=== PATIENT | female | born 1995 | race Two or more races ===

== ENCOUNTER 2022-02-07 11:53 | Inpatient (IN) ==
[2022-02-07] MEDS ORDERED: ERTAPENEM SODIUM 10 ML IV STA (12:07)
[2022-02-07] MEDS ORDERED: SODIUM CHLORIDE 0.9% 1000ML 1,000 ML IV ONE (12:07)
[2022-02-07] MEDS ORDERED: ONDANSETRON INJ 2 MG/ML 2 ML VIAL IV STA (12:07)
--- NOTE | 2022-02-07 12:32 | Emergency Department Note ---
Impression & Plan Pyelonephritis ED Provider Note NAME: AUBREE MURRY AGE: 26 SEX: F : 1995 ARRIVES VIA: Walk-In INFORMANT: Patient, ED PROVIDER(S): Harjit Mix DO CHIEF COMPLAINT: UTI symptoms HPI: The patient is a 26-year-old female who presented to the emergency department for an evaluation of UTI symptoms. The patient was seen in our facility recently for a work-up for appendicitis. Her CT did not show any acute signs of appendicitis. Her urine was sent for culture and the patient was treated with IV fluids and IV antibiotics in the emergency department. She was also started on outpatient cefdinir. She was noted to have an organism resistant to the antibiotic she was started on. She was called and asked to return to the emergency department for further evaluation. The patient states she still has chills and some lower abdominal tenderness. She denies having any vomiting. She does complain of nausea. She states that she has had fevers at home. She has had generalized malaise. Her blood sugars have been well controlled according to her. She has had no recent trauma. The patient denies have any vaginal bleeding or discharge. ROS: See above HPI for pertinent positives & negatives. A total of 10 systems reviewed and were otherwise negative. PAST MEDICAL HISTORY: See Below PAST SURGICAL HISTORY: See Below FAMILY HISTORY: See Below SOCIAL HISTORY: See Below HOME MEDICATIONS: See Below ALLERGIES: See Below VITALS: See Below PHYSICAL EXAMINATION: GENERAL: The patient is awake and alert. She is mildly anxious. But overall comfortable. EYES: The conjunctivae are clear. The pupils are round and reactive. EARS, NOSE, MOUTH AND THROAT: The nose is without any evidence of any deformity. Mucous membranes are moist. Tongue is midline. NECK: The neck is nontender and supple. RESPIRATORY: Normal respiratory effort is noted there is no evidence of wheezing rhonchi or rales CARDIOVASCULAR: Tachycardic rate with regular rhythm was noted. There is no definite murmur. GASTROINTESTINAL: The abdomen was soft and nondistended. There is no specific guarding or rigidity. There was some tenderness in the suprapubic region. BACK: No midline tenderness or or step-off noted range of motion in flexion extension as well as rotation no signs of muscle spasm noted MUSCULOSKELETAL/EXTREMITIES: There is no evidence of gross deformity full range of motion is noted in the hips and shoulders. SKIN: There is no obvious evidence of any rash. There are no petechiae, pallor or cyanosis noted. NEUROLOGIC: Patient is awake alert and oriented x3 MEDICAL DECISION MAKING: The patient is a 26-year-old female who presented to the emergency department for an evaluation of abnormal urine culture. The patient was seen in our [facility] recently for similar complaints. At that time she was diagnosed with a urinary tract infection. She was sent home on an antibiotic. She was called to return today because of an ESBL organism in her urine. The patient has a history of diabetes. I review of her CT by the radiologist today does show that there was some signs of pyelonephritis on the previous CT. I discussed patient's laboratory and radiographic studies with her. She was treated with IV fluids as well as IV antibiotics in emergency department. I also discussed her case with the on-call [facility]. They have agreed to evaluate the patient in the emergency department for further management and disposition. Triage Nursing notes reviewed. Prior medical records reviewed Vital Signs: reviewed and remarkable for tachycardia Differential diagnosis: Ovarian torsion, endometriosis, ectopic , pelvic pain, UTI, cystitis, appendicitis, diverticulitis, mesenteric ischemia, PID, inflammatory bowel disease, renal colic, Bartholin's abscess, cervicitis, as well as other pathologies. ER treatment provided: See below Diagnostics interpreted by me: ECG: EKG was obtained in the emergency department. My interpretation is sinus tachycardia 104 bpm. There is no ectopy. There is no acute ST segment abnormalities noted Cardiac Monitoring: An order was placed for continuous cardiac monitoring. The monitor shows a rate of 106 bpm with sinus rhythm. Laboratory studies: As stated above and show below. Imaging studies: See below Consultation(s): I discussed this case with Dr. Louis who is on-call for the [facility] group. He is agreed to evaluate the patient in the emergency department for further management and disposition. Past Med/Surg History Medical History Diabetes Social History Smoking Status: Never smoker Feels Safe at Home: Yes Allergies Allergies Allergy/AdvReac Type Severity Reaction Status Date / Time No Known Allergies Allergy Unverified 02/04/22 17:28 Home Meds Home Medications Medication Instructions Recorded Confirmed acetaminophen 500 mg tablet 500 mg PO DIRECTED PRN MDD i 02/04/22 02/04/22 metformin 500 mg tablet,extended 500 mg PO BID 02/04/22 02/04/22 release 24 hr semaglutide 1 mg/dose (4 mg/3 mL) 1 mg SUBCUT WE 02/04/22 02/04/22 subcutaneous pen injector (Ozempic) Previous Rx's Medication Instructions Recorded cefdinir 300 mg capsule 300 mg PO BID 7 Days #14 cap 02/04/22 Results & Data (ED) Vital Signs Vital Signs - 24 hr 02/07/22 12:02 02/07/22 12:48 02/07/22 13:05 Pulse Rate 124 H 107 H Pulse Rate [Apical] 106 H Pulse Rhythm Regular Pulse Rhythm [Apical] Regular Respiratory Rate 16 13 Respiratory Effort / Characteristics Non-Labored Non-Labored Non-Labored Respiratory Depth Normal Respiratory Pattern Regular Blood Pressure 112/77 Blood Pressure [Left Arm] 113/83 Blood Pressure Mean 88 Blood Pressure Mean [Left Arm] 93 Blood Pressure Position Sitting Pulse Oximetry 98 100 100 Oxygen Delivery Method Room Air Room Air Room Air Sepsis Recent Fever Within 48 Hours No Sepsis New/Unexplained Change in Mental Status No Sepsis Action Taken by Nursing No Action Required Home Medications Current Medication List: was personally reviewed by me Laboratory Data Attestation: I reviewed the patient's lab results. Result diagrams: 02/07/22 12:30 02/07/22 12:30 Lab Results 02/07/22 02/07/22 02/07/22 Range/Units 12:25 12:30 12:30 WBC 7.70 (4.8-10.8) K/uL RBC 4.36 (4.2-5.4) M/uL Hgb 12.7 (12.0-16.0) g/dL Hct 37.2 (37-47) % MCV 85.3 (80-100) fL MCH 29.1 (25-34) pg MCHC 34.1 (32-36) g/dL RDW Std Deviation 39.5 (36.4-46.3) fL RDW Coeff of Lindy 12.7 (11.5-14.5) % Plt Count 254 (130-400) K/uL MPV 10.3 (7.4-10.4) fL Immature Gran % (Auto) 1.0 % Neut % (Auto) 65.4 % Lymph % (Auto) 20.3 % [place] % (Auto) 13.0 % Eos % (Auto) 0.3 % Baso % (Auto) 0.0 % Neut # (Auto) 5.04 (1.4-6.5) K/uL Lymph # (Auto) 1.56 (1.2-3.4) K/uL [place] # (Auto) 1.00 H (0.11-0.59) K/uL Eos # (Auto) 0.02 (0-0.5) K/uL Baso # (Auto) 0.00 (0-0.2) K/uL Immature Gran # (Auto) 0.08 H (0.00-0.02) K/uL PT 10.9 (9.0-12.0) Seconds INR 1.0 (0.9-1.1) APTT 32.5 H (21.0-31.0) Seconds PTT Ratio 1.2 Sodium (136-145) mmol/L Potassium (3.5-5.1) mmol/L Chloride (98-107) mmol/L Carbon Dioxide (21-32) mmol/L Anion Gap (3-11) BUN (6-23) mg/dl Creatinine (0.6-1.2) mg/dl Est Cr Clr Drug Dosing ml/min Est GFR ( Amer) ml/min Est GFR (Non-Af Amer) ml/min BUN/Creatinine Ratio (10-20) Glucose (70-99(Fasting)) mg/dl Lactate 1.8 (0.4-2.0) mmol/L Calcium (8.5-10.1) mg/dl Magnesium (1.7-2.4) mg/dl Total Bilirubin (0.2-1.0) mg/dl AST (13-39) U/L ALT (7-52) U/L Alkaline Phosphatase (34-104) U/L Total Protein (6.0-8.3) gm/dl Albumin (3.4-5.0) gm/dl Globulin (2.5-4.0) gm/dl Albumin/Globulin Ratio (0.9-2) HCG, Qual (Negative) SARS-CoV-2, RNA, NAAT (NEGATIVE) 02/07/22 02/07/22 02/07/22 Range/Units 12:30 12:30 12:30 WBC (4.8-10.8) K/uL RBC (4.2-5.4) M/uL Hgb (12.0-16.0) g/dL Hct (37-47) % MCV (80-100) fL MCH (25-34) pg MCHC (32-36) g/dL RDW Std Deviation (36.4-46.3) fL RDW Coeff of Lindy (11.5-14.5) % Plt Count (130-400) K/uL MPV (7.4-10.4) fL Immature Gran % (Auto) % Neut % (Auto) % Lymph % (Auto) % [place] % (Auto) % Eos % (Auto) % Baso % (Auto) % Neut # (Auto) (1.4-6.5) K/uL Lymph # (Auto) (1.2-3.4) K/uL [place] # (Auto) (0.11-0.59) K/uL Eos # (Auto) (0-0.5) K/uL Baso # (Auto) (0-0.2) K/uL Immature Gran # (Auto) (0.00-0.02) K/uL PT (9.0-12.0) Seconds INR (0.9-1.1) APTT (21.0-31.0) Seconds PTT Ratio Sodium 134 L (136-145) mmol/L Potassium 4.0 (3.5-5.1) mmol/L Chloride 101 (98-107) mmol/L Carbon Dioxide 21 (21-32) mmol/L Anion Gap 12 H (3-11) BUN 11 (6-23) mg/dl Creatinine 0.78 (0.6-1.2) mg/dl Est Cr Clr Drug Dosing 96.0 ml/min Est GFR ( Amer) 123.3 ml/min Est GFR (Non-Af Amer) 106.4 ml/min BUN/Creatinine Ratio 14.1 (10-20) Glucose 290 H (70-99(Fasting)) mg/dl Lactate (0.4-2.0) mmol/L Calcium 9.0 (8.5-10.1) mg/dl Magnesium 1.8 (1.7-2.4) mg/dl Total Bilirubin 0.6 (0.2-1.0) mg/dl AST 7 L (13-39) U/L ALT 8 (7-52) U/L Alkaline Phosphatase 90 (34-104) U/L Total Protein 7.2 (6.0-8.3) gm/dl Albumin 3.8 (3.4-5.0) gm/dl Globulin 3.4 (2.5-4.0) gm/dl Albumin/Globulin Ratio 1.1 (0.9-2) HCG, Qual Negative (Negative) SARS-CoV-2, RNA, NAAT NEGATIVE (NEGATIVE) Administered Medications Discontinued Medications Sodium Chloride (Nss 1000ml) 1,000 mls @ 999 mls/hr IV .Q1H1M ONE Stop: 02/07/22 13:07 Last Admin: 02/07/22 12:33 Dose: 999 mls/hr Documented by: [id number] Ertapenem (Invanz) 10 mls @ 2 mls/min IV NOW STA Stop: 02/07/22 12:11 Last Admin: 02/07/22 13:00 Dose: 2 mls/min Documented by: [id number] Ondansetron HCl (Ondansetron Inj 2 Mg/Ml 2 Ml Vial) 4 mg IV NOW STA Stop: 02/07/22 12:08 Last Admin: 02/07/22 12:33 Dose: 4 mg Documented by: [id number] Imaging Data Radiologist's Impression: Chest X-Ray 02/07/22 12:07 SINGLE VIEW CHEST CLINICAL HISTORY: Sepsis. FINDINGS: An AP, portable, upright chest radiograph is obtained. No prior studies are available for comparison at the time of dictation. The card iomediastinal silhouette is unremarkable. The lungs and pleural spaces are clear. No pneumothorax is seen. The bony thorax is grossly intact. IMPRESSION: No active disease in the chest. ACT 112: Negative or not required by law. Electronically signed by: Jose Shin M.D. 02/07/2022 1:00 PM Discharge Plan Visit Data Chief Complaint: Fever Stated Complaint: FEVER AND CHILLS ED Provider: Harjit Mix Discharge Problem: Pyelonephritis Patient Disposition: Being Evaluated by Hospitalist Forms Stand Alone Forms: My [facility] Prescriptions Prescriptions: No Action acetaminophen [Paracetamol] 500 mg Tablet 500 mg PO DIRECTED MDD i PRN (Reason: Pain) RF: 0 metformin 500 mg tablet extended release 24 hr 500 mg PO BID RF: 0 Ozempic 1 mg/dose (4 mg/3 mL) pen injector 1 mg SUBCUT WE RF: 0 cefdinir 300 mg capsule 300 mg PO BID 7 Days Qty: 14 RF: 0 Referrals Referrals: [facility] [Primary Care Provider] -
[2022-02-07 12:50] LABS: Eosinophils # (auto) 0.02 K/uL (0-0.5); Eosinophils % (auto) 0.3 %; Hematocrit (blood only) 37.2 % (37-47); Hemoglobin 12.7 g/dL (12.0-16.0); Immature Granulocytes # (auto) 0.08 K/uL (0.00-0.02); Lymphocytes # (auto) 1.56 K/uL (1.2-3.4); Lymphocytes % (auto) 20.3 %; Mean Corpuscular Hemoglobin 29.1 pg (25-34); Mean Corpuscular Hgb Conc 34.1 g/dL (32-36); Mean Corpuscular Volume 85.3 fL (80-100); Mean Platelet Volume 10.3 fL (7.4-10.4); Neutrophils # (auto) 5.04 K/uL (1.4-6.5); Neutrophils % (auto) 65.4 %; Platelet Count 254 K/uL (130-400); RDW Coefficient of Variation 12.7 % (11.5-14.5); RDW Standard Deviation 39.5 fL (36.4-46.3); Red Blood Count 4.36 M/uL (4.2-5.4)
[2022-02-07 13:03] LABS: Partial Thromboplastin Ratio 1.2; Partial Thromboplastin Time 32.5 Seconds (21.0-31.0); Prothrombin Time 10.9 Seconds (9.0-12.0)
--- NOTE | 2022-02-07 13:03 | XRay Report ---
SINGLE VIEW CHEST CLINICAL HISTORY: Sepsis. FINDINGS: An AP, portable, upright chest radiograph is obtained. No prior studies are available for c omparison at the time of dictation. The cardiomediastinal silhouette is unremarkable. The lungs and pleural spaces are clear. No pneumothorax is seen. The bony thorax is grossly intact. IMPRESSION: No active disease in the chest. ACT 112: Negative or not required by law. Electronically signed by: Jose Shni M.D. 02/07/2022 1:00 PM
[2022-02-07 13:13] LABS: Pregnancy Test, Serum Negative (Negative)
[2022-02-07 13:14] LABS: Albumin Globulin Ratio 1.1 (0.9-2); Albumin Level 3.8 gm/dl (3.4-5.0); BUN Creatinine Ratio 14.1 (10-20); Bilirubin,Total 0.6 mg/dl (0.2-1.0); Est GFR (African American) 123.3 ml/min; Est GFR (Non-African American) 106.4 ml/min; Globulin 3.4 gm/dl (2.5-4.0); Magnesium 1.8 mg/dl (1.7-2.4); Total Protein 7.2 gm/dl (6.0-8.3)
--- NOTE | 2022-02-07 14:21 | History & Physical Report ---
Date of Service February 07, 2022 Assessment & Plan (1) Pyelonephritis: Plan: Presumed diagnosis, though not conclusive to me. Her UA from 02/04 was a contaminated specimen. She has some RLQ pain, but no CVA tenderness, and no lower urinary symptoms at all. Per ER doc, the re-read of her CT a/p from 02/04 shows some hints of right-sided pyelonephritis. - Continue ertapenem started in ER - Follow blood cultures from admission - Renal & bladder u/s ordered to help better determine if pyelonephritis is present. (2) Abdominal pain, right lower quadrant: Plan: This is her original presenting symptom to the ER on 02/04. As above, it is not 100% clear to me that this is related to a pyelonephritis, but she is still having systemic infectious symptoms, so will treat as if pyelonephritis is etiology. - Monitor for any worsening/change in pain. (3) Diabetes: Plan: Per patient, was diagnosed at 20 with Type 2 diabetes. She was mildly overweight (BMI 24 at the time). Has never needed insulin. Prior A1c in [place] was ~10%. - Hold home metformin - Takes her home semaglutide on - Sliding scale insulin - Repeat A1c (4) DVT prophylaxis: Plan: SCDs and early ambulation History of Present Illness Primary Care Provider: [facility] 26yo F w/ hx of DM2 who presents with possible pyelonephritis and ESBL UTI. The patient first noted some abdominal pain about 3 days prior in the RLQ. She came to the ER, and was evaluated for possible appendectomy; however, the CT a/p did not show anything. Her UA looked infected, so she was sent home on cefdinir. However, her urine culture returned with ESBL E. coli, and she was called to come back to the hospital. She notes that she has continued to have some RLQ abdominal pain, and subjective fevers and chills at home. The f/c last about 30 minutes. She has not taken her temperature, so she is not sure if she has been actually feverish or not. She also reports some nausea and loss of appetite, but no vomiting. Interestingly, she denies any actual UTI symptoms. No dysuria, no frequency, no sense of incomplete voiding. No chest pain, no shortness of breath, no lightheadedness, dizziness, or other concerning findings. Allergies Allergy/AdvReac Type Severity Reaction Status Date / Time No Known Allergies Allergy Unverified 02/07/22 14:21 Home Medications Medication Instructions Recorded Confirmed Type acetaminophen 500 mg tablet 500 mg PO DIRECTED PRN MDD i 02/04/22 02/07/22 History metformin 500 mg tablet,extended 500 mg PO BID 02/04/22 02/07/22 History release 24 hr semaglutide 1 mg/dose (4 mg/3 mL) 1 mg SUBCUT WE 02/04/22 02/07/22 History subcutaneous pen injector (Ozempic) Past Med/Surg History Medical History (Updated 02/07/22 @ 15:13 by Eric Louis MD) Diabetes Surgical History No pertinent past surgical history Social History Smoking Status: Never smoker Feels Safe at Home: Yes Review of Systems Review of Systems: All systems reviewed & are unremarkable except as noted in HPI & below Physical Exam Constitutional: WD/WN, vitals as above Eyes: EOM intact bilaterally; no conjunctival abnormality ENMT: external ear and nose normal, oropharynx normal Neck: trachea midline, no thyromegaly normal visual inspection Respiratory: normal respiratory effort, lungs clear to auscultation no respiratory distress Cardiovascular: Rate/Rhythm: regular rhythm and + tachycardic Gastrointestinal (Abdomen): Inspection/Auscultation: abdomen normal to inspection; abdomen not distended Musculoskeletal: no cyanosis or clubbing, extremities motor strength 5/5 Skin: no rashes, warm and dry Neurologic: moves all extremities and awake Psychiatric: Orientation: alert, oriented to person and cooperative Genitourinary: no CVA tenderness Results & Data Results & Data ([facility]) Vital Signs (Past 12 Hours) Vital Signs Pulse Pulse Resp BP BP Pulse Ox 02/07/22 13:37 16 99 02/07/22 13:05 106 H 13 113/83 100 02/07/22 12:48 107 H 100 02/07/22 12:02 124 H 16 112/77 98 Code Status & VTE Plan VTE Prophylaxis Plan VTE Prophylaxis will be ordered: Yes PG Care Time/CCT Total # of Minutes Spent Total Time Spent with Patient: Total time spent is greater than 50% in coordination of care (as documented) at patient's floor/unit and/or counseling patient: Coding Level of Care Code 49524 Initial Inpt Care Lvl 3 Diagnoses Pyelonephritis N12 Diabetes E11.9 DVT prophylaxis Z29.9 Abdominal pain, right lower quadrant R10.31
[2022-02-07 14:40] LABS: Appearance Urine Clear (Clear); Bilirubin Urine Negative (Negative); Blood Urine Negative (Negative); Color Urine Yellow; Glucose Urine UA 3+ (Negative); Ketones Urine Trace (Negative); Leukocyte Esterase Urine Negative (Negative); Nitrite Urine Negative (Negative); Protein Urine Negative (Negative); Specific Gravity Urine 1.014 (1.000-1.030); Urobilinogen Urine Negative (Negative)
[2022-02-07] MEDS ORDERED: DEXTROSE 50% 50 ML SYRINGE IV PRN (15:14)
[2022-02-07] MEDS ORDERED: GLUCAGON FOR INJ 1 MG VIAL SQ PRN (15:14)
[2022-02-07] MEDS ORDERED: GLUCOSE 40% GEL 15 GM TUBE PO PRN (15:14)
[2022-02-07] MEDS ORDERED: CARBOHYDRATES FOR HYPOGLYCEMIA PO PRN (15:14)
[2022-02-07] MEDS ORDERED: GLUCOSE 10 TABS/TUBE PO PRN (15:14)
[2022-02-07] MEDS: INSULIN ASPART PER UNIT SC SCH ×2 (17:41→20:44)
[2022-02-07] MEDS: ACETAMINOPHEN 325 MG TAB PO PRN (19:21)
--- NOTE | 2022-02-08 07:03 | Electrocardiogram Report ---
Test Reason : Blood Pressure : / mmHG Vent. Rate : 104 BPM Atrial Rate : 104 BPM P-R Int : 124 ms QRS Dur : 078 ms QT Int : 338 ms P-R-T Axes : -02 036 020 degrees QTc Int : 444 ms Sinus tachycardia Otherwise normal ECG When compared with ECG of 04-FEB-2022 17:10, No significant change was found Confirmed by Jonathan Amanda ([id number]) on 02/08/2022 7:02:39 AM Referred By: Confirmed By:Jonathan Amanda
[2022-02-08 07:08] LABS: Hematocrit (blood only) 35.8 % (37-47); Hemoglobin 11.9 g/dL (12.0-16.0); Mean Corpuscular Hemoglobin 28.3 pg (25-34); Mean Corpuscular Hgb Conc 33.2 g/dL (32-36); Mean Platelet Volume 10.2 fL (7.4-10.4); Platelet Count 268 K/uL (130-400); RDW Coefficient of Variation 12.7 % (11.5-14.5); RDW Standard Deviation 39.5 fL (36.4-46.3); Red Blood Count 4.21 M/uL (4.2-5.4); White Blood Count 6.17 K/uL (4.8-10.8)
[2022-02-08 07:31] LABS: BUN Creatinine Ratio 11.4 (10-20); Est GFR (African American) 140.5 ml/min; Est GFR (Non-African American) 121.3 ml/min; Magnesium 1.9 mg/dl (1.7-2.4); Potassium 4.1 mmol/L (3.5-5.1)
--- NOTE | 2022-02-08 08:24 | Hospitalist Progress Note ---
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 She was mildly overweight (BMI 24 at the time). Has never needed insulin. Prior A1c in [facility] was >10%, believes in 11 range. C-peptide sent given young age at onset to r/o type I On metformin 500mg BID, ozempic 1mg on A1c improved to 6.8 on AM labs and continue to monitor/resume home meds at discharge DM educator consulted as well (4) DVT prophylaxis: Plan: SCDs and early ambulation Admission and Anticipated Discharge Date Admission Date: February 07, 2022 Supervising Physician Co-Signing Physician Notes Attending Attestation - Chart reviewed in detail, care plan d/w TALYA Rios. I agree w/ the montiel components of her documentation. Appreciate urology consultation for abnormal anatomy (duplicated collection system on right). Has evidence of UTI/right-sided pyelonephritis 2nd to ESBL e.coli. Cont IV ertapenem - would rx current infection with at least 10 days of the ertapenem, potentially up to 14 days. Cont DM care. Follow blood cultures. Bay Srinivasan MD. Subjective Patient evaluated around 11am. Initially was hopeful to be able to discharge today given it's finals week and she graduating from masters program with bioinformatics/genomics. Hx DM for approximately 6 years, on metformin and Ozempic 1mg once weekly on and noted prior A1c was in the 11s. 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 Sending for C-peptide level but patient states she is a type 2 and strong family history of such. Pain currently controlled. Afebrile today but had temp 37.8C ;ast evening. No chest pain/shortness of breath/abd pain/nausea or vomiting at this time. Will hope for arrangement of IV abx through [facility] and placement of US guided IV site. Should complete 10-14 days. Questions/concerns addressed. Review of Systems Review of Systems: All systems reviewed & are unremarkable except as noted in HPI & below Physical Exam Physical Exam: General: WD/WN female resting comfortably in bed upon arrival, NAD HEENT: head normocephalic, atraumatic, eyes anicteric, pupils equal, trachea midline without deviation Resp: CTAB, no w/c/r, on room air CV: Regular rhythm , tachycardic (rate 102bpm), no m/r/g, no edema GI:+BS, soft, non-tender MSK/NEURO: moves all extremities, no slurred speech, follows commands, CN intact grossly Psych: AOx3, pleasant and cooperative but tearful about having to stay inpatient Results & Data Results & Data ([facility]) Vital Signs (Past 12 Hours) Vital Signs Temp Pulse Resp BP Pulse Ox 02/08/22 07:30 36.9 C 109 H 16 109/73 98 02/07/22 22:32 36.7 C 92 H 18 95/68 L 99 02/07/22 20:48 36.8 C Laboratory Results 02/08/22 02/08/22 02/08/22 Range/Units 08:00 06:34 06:31 WBC (4.8-10.8) K/uL RBC (4.2-5.4) M/uL Hgb (12.0-16.0) g/dL Hct (37-47) % MCV (80-100) fL MCH (25-34) pg MCHC (32-36) g/dL RDW Std Deviation (36.4-46.3) fL RDW Coeff of Lindy (11.5-14.5) % Plt Count (130-400) K/uL MPV (7.4-10.4) fL Immature Gran % (Auto) % Neut % (Auto) % Lymph % (Auto) % [place] % (Auto) % Eos % (Auto) % Baso % (Auto) % Neut # (Auto) (1.4-6.5) K/uL Lymph # (Auto) (1.2-3.4) K/uL [place] # (Auto) (0.11-0.59) K/uL Eos # (Auto) (0-0.5) K/uL Baso # (Auto) (0-0.2) K/uL Immature Gran # (Auto) (0.00-0.02) K/uL PT (9.0-12.0) Seconds INR (0.9-1.1) APTT (21.0-31.0) Seconds PTT Ratio Sodium (136-145) mmol/L Potassium (3.5-5.1) mmol/L Chloride (98-107) mmol/L Carbon Dioxide (21-32) mmol/L Anion Gap (3-11) BUN (6-23) mg/dl Creatinine (0.6-1.2) mg/dl Est Cr Clr Drug Dosing ml/min Est GFR ( Amer) ml/min Est GFR (Non-Af Amer) ml/min BUN/Creatinine Ratio (10-20) Glucose (70-99(Fasting)) mg/dl POC Glucose 167 H 175 H (70-99) mg/dl Estimat Average Glucose 148 mg/dl Hemoglobin A1c 6.8 H (4.5-5.6) % Lactate (0.4-2.0) mmol/L Calcium (8.5-10.1) mg/dl Magnesium (1.7-2.4) mg/dl Total Bilirubin (0.2-1.0) mg/dl AST (13-39) U/L ALT (7-52) U/L Alkaline Phosphatase (34-104) U/L Total Protein (6.0-8.3) gm/dl Albumin (3.4-5.0) gm/dl Globulin (2.5-4.0) gm/dl Albumin/Globulin Ratio (0.9-2) HCG, Qual (Negative) Urine Color Urine Appearance (Clear) Urine pH (4.5-7.5) Ur Specific [place] (1.000-1.030) Urine Protein (Negative) Urine Glucose (UA) (Negative) Urine Ketones (Negative) Urine Blood (Negative) Urine Nitrite (Negative) Urine Bilirubin (Negative) Urine Urobilinogen (Negative) Ur Leukocyte Esterase (Negative) SARS-CoV-2, RNA, NAAT (NEGATIVE) 02/08/22 02/08/22 02/07/22 Range/Units 06:31 06:31 20:38 WBC 6.17 (4.8-10.8) K/uL RBC 4.21 (4.2-5.4) M/uL Hgb 11.9 L (12.0-16.0) g/dL Hct 35.8 L (37-47) % MCV 85.0 (80-100) fL MCH 28.3 (25-34) pg MCHC 33.2 (32-36) g/dL RDW Std Deviation 39.5 (36.4-46.3) fL RDW Coeff of Lindy 12.7 (11.5-14.5) % Plt Count 268 (130-400) K/uL MPV 10.2 (7.4-10.4) fL Immature Gran % (Auto) % Neut % (Auto) % Lymph % (Auto) % [place] % (Auto) % Eos % (Auto) % Baso % (Auto) % Neut # (Auto) (1.4-6.5) K/uL Lymph # (Auto) (1.2-3.4) K/uL [place] # (Auto) (0.11-0.59) K/uL Eos # (Auto) (0-0.5) K/uL Baso # (Auto) (0-0.2) K/uL Immature Gran # (Auto) (0.00-0.02) K/uL PT (9.0-12.0) Seconds INR (0.9-1.1) APTT (21.0-31.0) Seconds PTT Ratio Sodium 137 (136-145) mmol/L Potassium 4.1 (3.5-5.1) mmol/L Chloride 105 (98-107) mmol/L Carbon Dioxide 25 (21-32) mmol/L Anion Gap 7 (3-11) BUN 8 (6-23) mg/dl Creatinine 0.70 (0.6-1.2) mg/dl Est Cr Clr Drug Dosing 107.0 ml/min Est GFR ( Amer) 140.5 ml/min Est GFR (Non-Af Amer) 121.3 ml/min BUN/Creatinine Ratio 11.4 (10-20) Glucose 166 H (70-99(Fasting)) mg/dl POC Glucose 160 H (70-99) mg/dl Estimat Average Glucose mg/dl Hemoglobin A1c (4.5-5.6) % Lactate (0.4-2.0) mmol/L Calcium 9.0 (8.5-10.1) mg/dl Magnesium 1.9 (1.7-2.4) mg/dl Total Bilirubin (0.2-1.0) mg/dl AST (13-39) U/L ALT (7-52) U/L Alkaline Phosphatase (34-104) U/L Total Protein (6.0-8.3) gm/dl Albumin (3.4-5.0) gm/dl Globulin (2.5-4.0) gm/dl Albumin/Globulin Ratio (0.9-2) HCG, Qual (Negative) Urine Color Urine Appearance (Clear) Urine pH (4.5-7.5) Ur Specific [place] (1.000-1.030) Urine Protein (Negative) Urine Glucose (UA) (Negative) Urine Ketones (Negative) Urine Blood (Negative) Urine Nitrite (Negative) Urine Bilirubin (Negative) Urine Urobilinogen (Negative) Ur Leukocyte Esterase (Negative) SARS-CoV-2, RNA, NAAT (NEGATIVE) 02/07/22 02/07/22 02/07/22 Range/Units 15:20 14:11 12:30 WBC (4.8-10.8) K/uL RBC (4.2-5.4) M/uL Hgb (12.0-16.0) g/dL Hct (37-47) % MCV (80-100) fL MCH (25-34) pg MCHC (32-36) g/dL RDW Std Deviation (36.4-46.3) fL RDW Coeff of Lindy (11.5-14.5) % Plt Count (130-400) K/uL MPV (7.4-10.4) fL Immature Gran % (Auto) % Neut % (Auto) % Lymph % (Auto) % [place] % (Auto) % Eos % (Auto) % Baso % (Auto) % Neut # (Auto) (1.4-6.5) K/uL Lymph # (Auto) (1.2-3.4) K/uL [place] # (Auto) (0.11-0.59) K/uL Eos # (Auto) (0-0.5) K/uL Baso # (Auto) (0-0.2) K/uL Immature Gran # (Auto) (0.00-0.02) K/uL PT (9.0-12.0) Seconds INR (0.9-1.1) APTT (21.0-31.0) Seconds PTT Ratio Sodium (136-145) mmol/L Potassium (3.5-5.1) mmol/L Chloride (98-107) mmol/L Carbon Dioxide (21-32) mmol/L Anion Gap (3-11) BUN (6-23) mg/dl Creatinine (0.6-1.2) mg/dl Est Cr Clr Drug Dosing ml/min Est GFR ( Amer) ml/min Est GFR (Non-Af Amer) ml/min BUN/Creatinine Ratio (10-20) Glucose (70-99(Fasting)) mg/dl POC Glucose 127 H (70-99) mg/dl Estimat Average Glucose mg/dl Hemoglobin A1c (4.5-5.6) % Lactate (0.4-2.0) mmol/L Calcium (8.5-10.1) mg/dl Magnesium (1.7-2.4) mg/dl Total Bilirubin (0.2-1.0) mg/dl AST (13-39) U/L ALT (7-52) U/L Alkaline Phosphatase (34-104) U/L Total Protein (6.0-8.3) gm/dl Albumin (3.4-5.0) gm/dl Globulin (2.5-4.0) gm/dl Albumin/Globulin Ratio (0.9-2) HCG, Qual (Negative) Urine Color Yellow Urine Appearance Clear (Clear) Urine pH 7.0 (4.5-7.5) Ur Specific [place] 1.014 (1.000-1.030) Urine Protein Negative (Negative) Urine Glucose (UA) 3+ H (Negative) Urine Ketones Trace H (Negative) Urine Blood Negative (Negative) Urine Nitrite Negative (Negative) Urine Bilirubin Negative (Negative) Urine Urobilinogen Negative (Negative) Ur Leukocyte Esterase Negative (Negative) SARS-CoV-2, RNA, NAAT NEGATIVE (NEGATIVE) 02/07/22 02/07/22 02/07/22 Range/Units 12:30 12:30 12:30 WBC (4.8-10.8) K/uL RBC (4.2-5.4) M/uL Hgb (12.0-16.0) g/dL Hct (37-47) % MCV (80-100) fL MCH (25-34) pg MCHC (32-36) g/dL RDW Std Deviation (36.4-46.3) fL RDW Coeff of Lindy (11.5-14.5) % Plt Count (130-400) K/uL MPV (7.4-10.4) fL Immature Gran % (Auto) % Neut % (Auto) % Lymph % (Auto) % [place] % (Auto) % Eos % (Auto) % Baso % (Auto) % Neut # (Auto) (1.4-6.5) K/uL Lymph # (Auto) (1.2-3.4) K/uL [place] # (Auto) (0.11-0.59) K/uL Eos # (Auto) (0-0.5) K/uL Baso # (Auto) (0-0.2) K/uL Immature Gran # (Auto) (0.00-0.02) K/uL PT 10.9 (9.0-12.0) Seconds INR 1.0 (0.9-1.1) APTT 32.5 H (21.0-31.0) Seconds PTT Ratio 1.2 Sodium 134 L (136-145) mmol/L Potassium 4.0 (3.5-5.1) mmol/L Chloride 101 (98-107) mmol/L Carbon Dioxide 21 (21-32) mmol/L Anion Gap 12 H (3-11) BUN 11 (6-23) mg/dl Creatinine 0.78 (0.6-1.2) mg/dl Est Cr Clr Drug Dosing 96.0 ml/min Est GFR ( Amer) 123.3 ml/min Est GFR (Non-Af Amer) 106.4 ml/min BUN/Creatinine Ratio 14.1 (10-20) Glucose 290 H (70-99(Fasting)) mg/dl POC Glucose (70-99) mg/dl Estimat Average Glucose mg/dl Hemoglobin A1c (4.5-5.6) % Lactate (0.4-2.0) mmol/L Calcium 9.0 (8.5-10.1) mg/dl Magnesium 1.8 (1.7-2.4) mg/dl Total Bilirubin 0.6 (0.2-1.0) mg/dl AST 7 L (13-39) U/L ALT 8 (7-52) U/L Alkaline Phosphatase 90 (34-104) U/L Total Protein 7.2 (6.0-8.3) gm/dl Albumin 3.8 (3.4-5.0) gm/dl Globulin 3.4 (2.5-4.0) gm/dl Albumin/Globulin Ratio 1.1 (0.9-2) HCG, Qual Negative (Negative) Urine Color Urine Appearance (Clear) Urine pH (4.5-7.5) Ur Specific [place] (1.000-1.030) Urine Protein (Negative) Urine Glucose (UA) (Negative) Urine Ketones (Negative) Urine Blood (Negative) Urine Nitrite (Negative) Urine Bilirubin (Negative) Urine Urobilinogen (Negative) Ur Leukocyte Esterase (Negative) SARS-CoV-2, RNA, NAAT (NEGATIVE) 02/07/22 02/07/22 Range/Units 12:30 12:25 WBC 7.70 (4.8-10.8) K/uL RBC 4.36 (4.2-5.4) M/uL Hgb 12.7 (12.0-16.0) g/dL Hct 37.2 (37-47) % MCV 85.3 (80-100) fL MCH 29.1 (25-34) pg MCHC 34.1 (32-36) g/dL RDW Std Deviation 39.5 (36.4-46.3) fL RDW Coeff of Lindy 12.7 (11.5-14.5) % Plt Count 254 (130-400) K/uL MPV 10.3 (7.4-10.4) fL Immature Gran % (Auto) 1.0 % Neut % (Auto) 65.4 % Lymph % (Auto) 20.3 % [place] % (Auto) 13.0 % Eos % (Auto) 0.3 % Baso % (Auto) 0.0 % Neut # (Auto) 5.04 (1.4-6.5) K/uL Lymph # (Auto) 1.56 (1.2-3.4) K/uL [place] # (Auto) 1.00 H (0.11-0.59) K/uL Eos # (Auto) 0.02 (0-0.5) K/uL Baso # (Auto) 0.00 (0-0.2) K/uL Immature Gran # (Auto) 0.08 H (0.00-0.02) K/uL PT (9.0-12.0) Seconds INR (0.9-1.1) APTT (21.0-31.0) Seconds PTT Ratio Sodium (136-145) mmol/L Potassium (3.5-5.1) mmol/L Chloride (98-107) mmol/L Carbon Dioxide (21-32) mmol/L Anion Gap (3-11) BUN (6-23) mg/dl Creatinine (0.6-1.2) mg/dl Est Cr Clr Drug Dosing ml/min Est GFR ( Amer) ml/min Est GFR (Non-Af Amer) ml/min BUN/Creatinine Ratio (10-20) Glucose (70-99(Fasting)) mg/dl POC Glucose (70-99) mg/dl Estimat Average Glucose mg/dl Hemoglobin A1c (4.5-5.6) % Lactate 1.8 (0.4-2.0) mmol/L Calcium (8.5-10.1) mg/dl Magnesium (1.7-2.4) mg/dl Total Bilirubin (0.2-1.0) mg/dl AST (13-39) U/L ALT (7-52) U/L Alkaline Phosphatase (34-104) U/L Total Protein (6.0-8.3) gm/dl Albumin (3.4-5.0) gm/dl Globulin (2.5-4.0) gm/dl Albumin/Globulin Ratio (0.9-2) HCG, Qual (Negative) Urine Color Urine Appearance (Clear) Urine pH (4.5-7.5) Ur Specific [place] (1.000-1.030) Urine Protein (Negative) Urine Glucose (UA) (Negative) Urine Ketones (Negative) Urine Blood (Negative) Urine Nitrite (Negative) Urine Bilirubin (Negative) Urine Urobilinogen (Negative) Ur Leukocyte Esterase (Negative) SARS-CoV-2, RNA, NAAT (NEGATIVE) PG Care Time/CCT Total # of Minutes Spent Total Time Spent with Patient: Total time spent is greater than 50% in coordination of care (as documented) at patient's floor/unit and/or counseling patient: Coding Level of Care Code 61971 Subseq Hosp Care Lvl 3 Diagnoses Pyelonephritis N12 Abdominal pain, right lower quadrant R10.31 Diabetes E11.9 DVT prophylaxis Z29.9
[2022-02-08] MEDS: INSULIN ASPART PER UNIT SC SCH ×4 (08:53→20:58)
[2022-02-08 08:58] LABS: Estimated Average Glucose 148 mg/dl; Hemoglobin A1C 6.8 % (4.5-5.6)
[2022-02-08] MEDS ORDERED: ERTAPENEM SODIUM 10 ML IV SCH (12:00)
[2022-02-08] MEDS: ERTAPENEM SODIUM 1,000 MG in SYRINGE 0 ML IV SCH (12:45)
[2022-02-08] MEDS: ONDANSETRON INJ 2 MG/ML 2 ML VIAL IV PRN (12:56)
--- NOTE | 2022-02-08 13:59 | Urology Consultation ---
Date of Consultation February 08, 2022 Assessment & Plan (1) Pyelonephritis: (2) UTI (urinary tract infection): 26 yo F with past medical history of type 2 diabetes admitted for suspected right pyelonephritis and E. coli ESBL UTI. - Plan of care reviewed with Dr. Talamantes. - Afebrile, nontoxic, lab work reviewed - creatinine 0.70, WBC 6.17. - Patient subjectively improving, no flank pain. - Urine culture 02/04 grew out E. coli ESBL - currently on IV Ertapenem per sensitivities. - Blood cultures 02/07 showing no growth x 24 hours. - CTAP reviewed and showed duplicated right collecting system, upper pole segment with hydroureter and inflammation, likely pyelonephritis; no obstruction visualized though there is a segment where ureters are not well visualized. Plan: - Continue IV Ertapenem per sensitivities. - Discussed plan with hospitalist, patient will be monitored at least overnight. - Plan is for placement of PIV and IV Ertapenem x 10 days as outpatient. - No acute intervention warranted at this time. - If patient is not clinically improving with antibiotics, then may need further assessment to rule out obstruction. - Continue supportive care and management per primary service. - Will arrange outpatient follow-up with our service. - will sign off, please consult our service if any questions/concerns. History of Present Illness Reason for Consultation: pyelo, duplicated collecting system Requesting Physician: Dr. Srinivasan Attending Physician: Bay Srinivasan History of Present Illness 26 yo F with past medical history of type 2 diabetes admitted for suspected right pyelonephritis and E. coli ESBL UTI. Patient presented to [facility] ED initially on 02/04/22 with complaint of right lower quadrant abdominal pain and subjective fever and chills. She was afebrile on arrival. Lab work reviewed and showed WBC of 12.28, creatinine 0.78. UA was pos itive for nitrates, 3+ blood, 3+ leukocytes, >30 WBCs, and >30 RBCs, and 4+ bacteria. Urine culture collected. She underwent CT imaging which ruled out an acute appendicitis. She was treated with IV fluids, Acetaminophen and Ceftriaxone. She was discharged to home with PO cefdinir. Urine culture eventually grew out E. coli ESBL, resistant to cefdinir. She was called by pharmacy regarding urine culture results and was prompted to return to ED due to ongoing fever and chills. She returned to the emergency department on 02/07/22. She was afebrile on arrival. Lab work showed creatinine 0.78, WBC 7.70, Lactate 1.8. UA on 02/07 was not suspicious for infection. Blood cultures were obtained. She was treated with IV fluids, Ondansetron, and started on IV Ertapenem per urine culture sensitivities. Her previous CT from 02/04/22 was reviewed again and showed urothelial thickening and enhancement of the both right ureters (duplicated collecting system/ureter) with surrounding infiltration, and urothelial thickening and enhancement within the right renal pelvis. There is heterogeneous enhancement of the right kidney, greatest in the upper pole suggestive of ascending cystitis/pyelonephritis. She was admitted to the hospital medicine for further evaluation and management. Urology consulted for pyelonephritis, duplicated collecting system. Chart review: Afebrile (Tmax 37.8 on 02/07 at 2013) Creatinine 0.70 WBC 6.17 Hgb 11.9 Blood cultures (02/07) no growth x 24 hours On IV Ertapenem Imaging: CT abdomen pelvis IV con IMPRESSION: 1. No acute intra-abdominal or pelvic abnormality. 2. Evidence for a normal appendix. 3. Thickening of the endometrium, cystic changes of the ovaries bilaterally and trace free fluid in the cul-de-sac, most likely physiologic from rupture of an ovarian cyst. ADDENDUM: This CT scan is reviewed in conjunction with today's chest x-ray. The bladder wall is thickened and hyperemic with pericystic infiltration. There is urothelial thickening and enhancement of the both right ureters (duplicated collecting system/ureter) with surrounding infiltration, end there is also urothelial thickening and enhancement within the right renal pelvis. There is heterogeneous enhancement of the right kidney, greatest in the upper pole. These findings are typical for cystitis with ascending urinary tract infection/pyelonephritis of the right kidney. No fluid collection is identified to indicate abscess. There is no hydronephrosis. No obstructing stone or lesion is identified. The left kidney enhances homogeneously. The appendix is well- visualized and normal in the right lower quadrant. Patient seen and examined at bedside this afternoon. She is awake, alert and resting in bed. Subjectively feeling well, improved since arrival. Denies flank or abdominal pain at present. She is voiding without difficulty, no dysuria or hematuria. Notes low appetite, no nausea or vomiting. No fever or chills. Denies prior hx of UTI/pyelonephritis. She reports she was previously aware that she had a duplicated system on the right. Offers no additional complaints at present. Allergies Allergy/AdvReac Type Severity Reaction Status Date / Time No Known Allergies Allergy Unverified 02/07/22 14:21 Home Medications Medication Instructions Recorded Confirmed Type acetaminophen 500 mg tablet 500 mg PO DIRECTED PRN MDD i 02/04/22 02/07/22 History metformin 500 mg tablet,extended 500 mg PO BID 02/04/22 02/07/22 History release 24 hr semaglutide 1 mg/dose (4 mg/3 mL) 1 mg SUBCUT WE 02/04/22 02/07/22 History subcutaneous pen injector (Ozempic) Patient History Medical History Diabetes Surgical History No pertinent past surgical history Social History Smoking Status: Never smoker Hx Alcohol Use: No Hx Substance Use: No Preferred Language: [place] Communication Ability: Effective Bioassayist Required: No Beliefs That Will Affect Care: None marital status: Single Current Living Situation: Other Current Living Situation Comment: Apartment roommates, separate bedrooms and bathrooms Feels Safe at Home: Yes Assistive Devices: None Review of Systems Constitutional: as per Subjective / HPI Eyes: no problem reported Ear, Nose, Mouth, Throat: no problem reported Respiratory: no problem reported Cardiovascular: no problem reported Gastrointestinal: as per Subjective / HPI Genitourinary: as per Subjective / HPI Musculoskeletal: no problem reported Integumentary: no problem reported Neurologic: no problem reported Psychiatric: no problem reported Physical Exam Constitutional: well developed and well nourished; no acute distress and not ill appearing Eyes: no scleral abnormality Neck: normal visual inspection Respiratory: normal respiratory effort and able to speak in complete sentences; no respiratory distress and no labored breathing Cardiovascular: Extremities: no pedal edema Gastrointestinal (Abdomen): Inspection/Auscultation: abdomen normal to inspection; abdomen not distended Percussion/Palpation: abdomen soft; abdomen nontender and no guarding Musculoskeletal: Head/Neck/Chest: normocephalic and head atraumatic Extremities: extremities normal to inspection Skin: no visible skin rashes Neurologic: moves all extremities and awake Psychiatric: Orientation: alert, oriented x 3 and cooperative Genitourinary: no CVA tenderness Results & Data ([facility]) Vital Signs (Past 12 Hours) Vital Signs Temp Pulse Resp BP Pulse Ox 02/08/22 07:30 36.9 C 109 H 16 109/73 98 PG Care Time/CCT Total # of Minutes Spent Total Time Spent with Patient: Total time spent is greater than 50% in coordination of care (as documented) at patient's floor/unit and/or counseling patient: Coding Level of Care Code 07554 Inpt Consult Level 3 Diagnoses Pyelonephritis N12 UTI (urinary tract infection) N39.0; R31.9 Hematuria presence: with hematuria Urinary tract infection type: site unspecified (1) UTI (urinary tract infection) Hematuria presence: with hematuria Urinary tract infection type: site unspecified Qualified Code(s): N39.0 - Urinary tract infection, site not specified; R31.9 - Hematuria, unspecified
[2022-02-08] MEDS ORDERED: SODIUM CHLORIDE 0.9% 1000ML 1,000 ML IV SCH (16:00)
[2022-02-08] MEDS: ACETAMINOPHEN 325 MG TAB PO PRN (22:16)
[2022-02-09 06:22] LABS: Hematocrit (blood only) 36.8 % (37-47); Hemoglobin 12.1 g/dL (12.0-16.0); Mean Corpuscular Hemoglobin 28.1 pg (25-34); Mean Corpuscular Hgb Conc 32.9 g/dL (32-36); Mean Corpuscular Volume 85.6 fL (80-100); Platelet Count 310 K/uL (130-400); RDW Coefficient of Variation 12.6 % (11.5-14.5); RDW Standard Deviation 39.4 fL (36.4-46.3); White Blood Count 5.88 K/uL (4.8-10.8)
[2022-02-09 06:41] LABS: BUN Creatinine Ratio 12.3 (10-20); Calcium 9.1 mg/dl (8.5-10.1); Creatinine Clr Calc Pharmacy 102.6 ml/min; Est GFR (African American) 133.6 ml/min; Est GFR (Non-African American) 115.3 ml/min; Potassium 4.6 mmol/L (3.5-5.1)
[2022-02-09] MEDS: INSULIN ASPART PER UNIT SC SCH ×2 (09:36→14:16)
--- NOTE | 2022-02-09 09:57 | Discharge Summary ---
Date of Service February 09, 2022 Admission HPI Per Admitting Provider 26yo F w/ hx of DM2 who presents with possible pyelonephritis and ESBL UTI. The patient first noted some abdominal pain about 3 days prior in the RLQ. She came to the ER, and was evaluated for possible appendectomy; however, the CT a/p did not show anything. Her UA looked infected, so she was sent home on cefdinir. However, her urine culture returned with ESBL E. coli, and she was called to come back to the hospital. She notes that she has continued to have some RLQ abdominal pain, and subjective fevers and chills at home. The f/c last about 30 minutes. She has not taken her temperature, so she is not sure if she has been actually feverish or not. She also reports some nausea and loss of appetite, but no vomiting. Interestingly, she denies any actual UTI symptoms. No dysuria, no frequency, no sense of incomplete voiding. No chest pain, no shortness of breath, no lightheadedness, dizziness, or other concerning findings. Admission Exam Per Admitting Provider Constitutional: WD/WN, vitals as above Eyes: EOM intact bilaterally; no conjunctival abnormality ENMT: external ear and nose normal, oropharynx normal Neck: trachea midline, no thyromegaly normal visual inspection Respiratory: normal respiratory effort, lungs clear to auscultation no respiratory distress Cardiovascular: Rate/Rhythm: regular rhythm and + tachycardic Gastrointestinal (Abdomen): Inspection/Auscultation: abdomen normal to inspection; abdomen not distended Musculoskeletal: no cyanosis or clubbing, extremities motor strength 5/5 Skin: no rashes, warm and dry Neurologic: moves all extremities and awake Psychiatric: Orientation: alert, oriented to person and cooperative Genitourinary: no CVA tenderness Principal Diagnosis Pyelonephritis, ESBL Ecoli Discharge Exam General: WD/WN female resting comfortably in bed upon arrival, NAD HEENT: head normocephalic, atraumatic, eyes anicteric, pupils equal, trachea midline without deviation Resp: CTAB, no w/c/r, on room air CV: Regular rhythm , tachycardic (rate 102bpm), no m/r/g, no edema, US guided IV to LUE GI:+BS, soft, non-tender MSK/NEURO: moves all extremities, no slurred speech, follows commands, CN intact grossly Psych: AOx3, pleasant and cooperative Discharge Data Allergies Allergy/AdvReac Type Severity Reaction Status Date / Time No Known Allergies Allergy Unverified 02/07/22 14:21 Consultations 02/07/22 13:28 ED Decision to Admit Stat 02/08/22 10:52 Consult Urology Routine Ordered Studies Chest X-Ray 02/07/22 12:07 SINGLE VIEW CHEST CLINICAL HISTORY: Sepsis. FINDINGS: An AP, portable, upright chest radiograph is obtained. No prior studies are available for comparison at the time of dictation. The cardiomediastinal silhouette is unremarkable. The lungs and pleural spaces are clear. No pneumothorax is seen. The bony thorax is grossly intact. IMPRESSION: No active disease in the chest. ACT 112: Negative or not required by law. Electronically signed by: Jose Shin M.D. 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 She was mildly overweight (BMI 24 at the time). Has never needed insulin. Prior A1c in [place] was >10%, believes in 11 range. C-peptide sent given young age at onset to r/o type I On metformin 500mg BID, ozempic 1mg on A1c improved to 6.8 on AM labs and continue to monitor/resume home meds at discharge DM educator consulted as well (4) DVT prophylaxis: SCDs and early ambulation Total Time Total Time Spent Total Time Spent (In Minutes): 45 Discharge Plan Discharge Items Patient Disposition: Home - Self-Care Reason For Visit: ESBL UTI Discharge Diagnosis: ESBL UTI Goals: You have been hospitalized for an acute medical problem. During your stay at [facility], we have made an effort to correct the problem that brought you to the hospital while keeping you as comfortable as possible. Medications were used to bring your condition under control and your discharge instructions will include directions for any medications you should take after leaving the hospital. Please make sure you see your Primary Care Provider as part of your follow up plan. Activity: Resume your previous activity Non-emergency contact: Primary Care Provider Call non-emergency contact if: you have any medication questions, your symptoms worsen, your pain is not controlled and you have a fever Follow-up/Referrals: Kavon Talamantes, [Physician] - (4 weeks [facility] WILL CALL YOU WITHIN A DAY OR TWO TO SCHEDULE HOSPITAL FOLLOW UP.) [facility] [Primary Care Provider] - Diet: Carb Consistent or DM2 Addtl Attending Provider Instructions: You have been hospitalized for pyelonephritis (UTI) confirmed on imaging and culture showed ESBL E.Coli that was resistant to many oral antibiotics. 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 You have been treated with IV Ertapenem and an ultrasound guided IV catheter was placed and arrangements were made through the [facility] for daily dosing for the next 7 days to complete a total course of 10 days. These will be at 1pm daily. Please ensure staying well hydrated and encourage you to push oral fluids to ensure hydration status. Your A1c was checked given you diabetes, and this is much improved from prior values at 6.8. You can continue your usual diabetes medication. You should follow up with S in the next week to monitor your progress since discharge. You should return to the ER with any fever/chills, chest pain, difficulty urinating, or for any other symptoms concerning for you. It has been a pleasure being a part of the medical team providing for you while you have been in the hospital. Take care! Pending Studies at Discharge: Yes Studies:: C-peptide Stand-Alone Forms: My [facility] Medications and DC Order Prescriptions: New ertapenem 1 gram recon soln 1 g IV DAILY 7 Days Qty: 7 RF: 0 Continued acetaminophen 500 mg Tablet 500 mg PO DIRECTED MDD i PRN (Reason: Pain) RF: 0 metformin 500 mg tablet extended release 24 hr 500 mg PO BID RF: 0 Ozempic 1 mg/dose (4 mg/3 mL) pen injector 1 mg SUBCUT WE RF: 0 Discharge Orders: Discharge Order (Routine); Ordered 02/09/22 Ordered By: Laquita Boston/Other Patient Handouts: Managing Type 2 Diabetes Admission Data Admit Date/Time: 02/07/22 14:02 Attending Provider: Jermaine Melton Admit Provider: Eric Louis Primary Care Provider: [facility] Other Providers: Eric Louis ; Kavon Talamantes Other Interventions: Discharge Summary Assessment (RN) Last Done: 02/09/22 12:30 Supervising Physician Co-Signing Physician Notes Case discussed with Laquita Rios PA-C, agree with assessment and plan above. Seen at bedside prior to discharge. She feels normal state of health, nondistressed. Skin is warm and dry, lungs are clear, abdomen is nontender. Cardiac exam RRR, intermittently tachycardic with return to baseline on radial palpation when resting. No CVA tenderness. ESBL E. coli treatment with total course 10 days, ertapenem via ultrasound-guided IV catheter. Patient will follow-up with [facility], offered PCP follow-up at [facility] however patient notes she will be leaving after this year and would prefer to continue with [facility] and en establishing with a different provider after discharge. Feel this is reasonable. No questions or concerns at time of discharge. Coding Level of Care Code D/C DAY MANAGEMENT >30 MINS Diagnoses Pyelonephritis N12 Abdominal pain, right lower quadrant R10.31 Diabetes E11.9 DVT prophylaxis Z29.9
[2022-02-09] MEDS: ERTAPENEM SODIUM 1,000 MG in SYRINGE 0 ML IV SCH (12:21)
[2022-02-09] MEDS: ONDANSETRON INJ 2 MG/ML 2 ML VIAL IV PRN (12:22)
== END 2022-02-09 14:30 | disposition home or self-care (01) | DRG 690 ==
LOC: ED 11:53 → 3W 14:02 → SUATTDRO 14:02 → 3W 14:41
DX: R31.9 Hematuria, unspecified; N12 Tubulo-interstitial nephritis, not specified as acute or chronic; E11.9 Type 2 diabetes mellitus without complications; Z79.84 Long term (current) use of oral hypoglycemic drugs